=== PATIENT | female | born 1965 | race Caucasian/White ===

== ENCOUNTER 2018-11-15 15:01 | Day surgery (SDC) | payer OTHER ==
[2018-11-15] MEDS ORDERED: CEFAZOLIN 1 GM INJ (16:50)
[2018-11-15] MEDS ORDERED: PROPOFOL 20 ML (16:59)
[2018-11-15] MEDS ORDERED: LIDOCAINE 100 MG SYRINGE (16:59)
[2018-11-15] MEDS ORDERED: MIDAZOLAM 1 MG/ML 2 ML INJ IV (17:00)
[2018-11-15] MEDS ORDERED: HYDROmorphONE 1 MG/5 ML IV SYRINGE IV ×3 (17:00)
[2018-11-15] MEDS ORDERED: OXYCODONE/ACETAMINOPHEN (5/325) TAB PO ×2 (17:00)
[2018-11-15] MEDS ORDERED: ONDANSETRON 4 MG INJ IV (17:00)
[2018-11-15] MEDS ORDERED: TRIMETHOBENZAMIDE 100 MG/ML VIAL IM (17:00)
[2018-11-15] MEDS ORDERED: LABETALOL HCL 20MG INJ IV (17:00)
[2018-11-15] MEDS ORDERED: ALBUTEROL 0.083% (NEB) 2.5 MG/3 ML AMP HHN (17:00)
[2018-11-15] MEDS ORDERED: DIPHENHYDRAMINE 50 MG INJ IV (17:00)
[2018-11-15] MEDS ORDERED: IPRATROPIUM (NEB) 0.5 MG/2.5 ML AMP HHN (17:00)
[2018-11-15] MEDS ORDERED: FENTAnyl 50 MCG/ML VIAL IV ×3 (17:00)
[2018-11-15] MEDS ORDERED: EPHEDrine SULFATE 50 MG/5 ML SYG IV (17:00)
[2018-11-15] MEDS ORDERED: ONDANSETRON 4 MG INJ (17:00)
[2018-11-15] MEDS ORDERED: MIDAZOLAM 1 MG/ML 2 ML INJ (17:00)
[2018-11-15] MEDS ORDERED: hydrALAzine 20 MG INJ IV (17:00)
[2018-11-15] MEDS ORDERED: MEPERIDINE 25 MG INJ IV (17:00)
[2018-11-15] MEDS: LIDOCAINE 1% (MPF) 30 ML INJ (17:20)
[2018-11-15] MEDS: BUPIVACAINE 0.5% (SDV) 30 ML INJ (17:20)
== END 2018-11-15 18:36 | disposition home or self-care (01) ==
LOC: SDS 15:01
DX: G56.01 Carpal tunnel syndrome, right upper limb (principal); I10 Essential (primary) hypertension; E11.9 Type 2 diabetes mellitus without complications; E03.9 Hypothyroidism, unspecified
CPT/HCPCS: 64721; 82962